=== PATIENT | female | born 1950 | race Caucasian/White ===

== ENCOUNTER 2018-08-16 13:15 | Emergency (ER) | payer MEDICARE, SELFPAY ==
[2018-08-16 13:17] VITALS: BP 169/90; PULSE 53; RESP 18; TEMP 36.7; O2SAT 98; BMI 29.9
--- NOTE | 2018-08-16 13:42 | EKG12_ITS ---
Test Reason : HYPERTENSION Blood Pressure : / mmHG Vent. Rate : 049 BPM Atrial Rate : 049 BPM P-R Int : 182 ms QRS Dur : 070 ms QT Int : 438 ms P-R-T Axes : 031 -01 020 degrees QTc Int : 395 ms Sinus bradycardia with sinus arrhythmia Low voltage QRS Septal infarct , age undetermined Abnormal ECG Confirmed by EVERETT THOMPSON, SAEID ([id number]), market editor OSCAR KAUR ([id number]) on 08/20/2018 3:21:27 PM Referred By: DC Confirmed By:SAEID FLOYD MD
--- NOTE | 2018-08-16 13:42 | RAD_ITS ---
STUDY: X-RAY CHEST REASON FOR EXAM: Female, 68 years old. Pain TECHNIQUE: Single AP portable view of the chest. COMPARISON: November 15, 2012 chest x-ray FINDINGS: The lungs are clear and expanded. There is no demonstrated pleural abnormality. Normal size heart. Normal mediastinum and jean marie. Normal visualized pulmonary arteries. Normal visualized aortic arch and descending thoracic aorta. Normal visualized thoracic spine. Normal visualized ribs, clavicles, and shoulders. There is no demonstrated abnormality of the visualized soft tissue structures of the upper abdomen. RAD/Chest 1 View (Portable) IMPRESSION: Normal x-ray examination of the chest. Electronically Signed: Madison Huitron MD at 14:41 EST Tel , Service support ,
--- NOTE | 2018-08-16 13:47 | ED.DCSUM_ITS ---
- ER Visit Summary Date of Service: 08/16/18 Chief Complaint: High blood pressure History of Present Illness: The patient is a 68 F here for high blood pressure. She has been having high blood pressure is 4 months. She increased her atenolol from 5200 yesterday under her doctor's orders. Her blood pressure today was 185/50. She feels tired and short of breath. She is having mid scapular pain and headaches. Physical Examination: Afebrile and vital signs unremarkable except for a blood pressure of 169/90. She appears alert and oriented. No acute distress. Heart regular. Lungs clear. Abdomen soft. Moves all extremities. No focal or lateralizing neurologic abnormalities. Test Results: EKG, chest x-ray, and labs pending Emergency Department Course and Treatment: Patient's blood pressure when I went to the room had increased to 197 systolic. I treated her with hydralazine. We will also check EKG, labs, chest x-ray. Patient declined a CT of her brain. Labs unremarkable. EKG showed sinus rhythm at a rate of 49. Chest x-ray was normal. Patient's blood pressure dropped into the 140s and then increased again to the 180s. She continues to have a heart rate in the 50s. No change in her symptoms . She would like to go home. I spoke with Dr. Reynoso who was on-call for her physician assistant professor of anthropology. He advised decreasing the atenolol to 50 and following up in the office on Saturday. Treatment Plan: As above Disposition: Discharge Impression: Hypertension This note was generated with GreenNote dictation software. It may contain incorrect words, spelling, and punctuation that were not noted in review of the chart prior to signing ED Disposition - Plan for ED Patient: Chief Complaint: Hypertension Referrals: [facility] Doctor,Out of [Primary Care Provider] -
[2018-08-16 14:15] LABS: Absolute Lymphocyte Count 1.78 X10^3/ul (0.83-4.51); Absolute Neutrophil Count 6.1 X10^3/uL (2.0-7.7); Basophil# 0.04 X10^3/uL; Basophil% 0.5 % (0-1); Eosinophil# 0.27 X10^3/uL; Eosinophils% 3.1 % (0-5); Hemoglobin 14.3 g/dl (12.0-15.0); Lymphocyte # 1.78 X10^3/ul (4.0); Lymphocyte % 20.4 % (19-41); Mean Corp Hgb Conc 33.3 g/gl (32-36); Mean Corpuscular Hgb 29.4 pg (27.0-32.0); Mean Corpuscular Volume 88.5 fL (81-99); Mean Platelet Vol. 9.3 fl (6.2-12.0); Monocyte# 0.58 X10^3/uL; Monocyte% 6.6 % (0-10); Neutrophil # 6.06 X10^3/uL (2.7-7.7); Neutrophil % 69.3 % (47-70); POSITIVE COUNT NO; POSITIVE DIFFERENTIAL NO; POSITIVE MORPHOLOGY NO; Platelet Count 285 K/mm3 (150-450); RBC Distribution Width CV 12.9 % (11.6-14.6); RBC Distribution Width SD 41.7 fl (35.1-43.9); Red Blood Count 4.86 M/mm3 (4.2-5.4); White Blood Count 8.7 K/mm3 (4.4-11.0)
[2018-08-16 14:31] LABS: Anion Gap 9 (5-15); BUN 14 mg/dL (7-18); BUN/Creat Ratio 17.3 RATIO (10-20); Calcium,Total 8.9 mg/dL (8.5-10.1); Chloride 108 mmol/L (98-107); Creatinine, Serum 0.81 mg/dL (0.55-1.02); EST Glomerular Filtration Rate 75 mL/min (>60); Est Glom Filt Rate - Afr Amer 91 mL/min (>60); Estimated Creatinine Clearance 63.96 ml/min; Glucose 92 mg/dL (74-106); Potassium 3.7 mmol/L (3.5-5.1); Sodium Level 140 mmol/L (136-145)
--- NOTE | 2018-08-16 15:27 | ED.DEP ---
ED Disposition - Plan for ED Patient: Chief Complaint: Hypertension Instructions: ED HTN Established Additional Instructions: follow up with Leigthon Abraham on Saturday. decrease your atenolol to 50mg
[2018-08-16 15:50] VITALS: BP 156/60; PULSE 49; RESP 15; O2SAT 96
--- NOTE | 2018-08-16 15:51 | ED.RN ---
pt bp cuff transferred to right arm. bp was closer to normal range. medication was held per dr order. pt encouraged to use right arm for future bp evals. pt was instructed to drop her medication back to normal dose and to follow-up with pcp. Aisha Negron RN [id number]
--- OUTSIDE RECORDS SUMMARY | 2018-11-19 11:45 | XMS RPT_ITS ---
:1950 Author Organization [facility] Care Team Providers Name Role Phone Bharat Aguilera Attending Unavailable Leighton Abraham Primary Care Unavailable PROBLEMS PROBLEMS No Problem Records FoundPROCEDURES PROCEDURES No Procedure Records FoundRESULTS RESULTS 12 LEAD ELECTROCARDIOGRAM Observed: 08/20/2018 Status: F Source: [place] 3:21 PM [facility] [place] [facility] Cardiovascular Services [address] [place] [address] 12 Lead EKG 08/16/18 1415 MR#: [id number] Acct: [id number] Name: HAL REYES Rep #: [id number] : 1950 68 From: Kyle Floyd MD Attending Dr: Status: DEP ER Ordering Dr: Bharat Aguilera MD Date: 08/16/18 Location: ED Sex: F C Admitted: Test Reason : HYPERTENSION Blood Pressure : / mmHG Vent. Rate : 049 BPM Atrial Rate : 049 BPM P-R Int : 182 ms QRS Dur : 070 ms QT Int : 438 ms P-R-T Axes : 031 -01 020 degrees QTc Int : 395 ms Sinus bradycardia with sinus arrhythmia Low voltage QRS Septal infarct , age undetermined Abnormal ECG Confirmed by KYLE FLOYD MD ([id number]), editor publications OSCAR KAUR ([id number]) on 08/20/2018 3:21:27 PM Referred By: DC Confirmed By:KYLE FLOYD MD 08/20/18 1521 Date Kyle Floyd MD CC: Leighton Abraham; Bharat Aguilera MD; OUT OF TOWN DOCTOR Signed DISCHARGE INSTRUCTION Observed: 08/16/2018 Status: F Source: [place] 4:56 PM [facility] RE[facility]IT[facility] Medical Records Department [address] [place] [address] Discharge Instruction 08/16/18 1527 MR#: [id number] Acct: [id number] Name: HAL REYES Rep #: [id number] : 1950 68 From: Bharat Aguilera MD PCP: OUT OF TOWN DOCTOR Status: DEP ER ED Disposition - Plan for ED Patient: Chief Complaint: Hypertension Instructions: ED HTN Established Additional Instructions: follow up with Leighton Abraham on Saturday. decrease your atenolol to 50mg What to do if you have Problems For any increased pain, shortness of breath, bleeding, nausea or vomiting, chest pain, or any unexpected problems, contact your Primary Care Provider. Call [facility] ([phone]) or report to the closest Emergency Room. Call 911 if necessary. 08/16/18 165 <Electronically signed by Bharat Aguilera MD> Date Bharat Aguilera MD Cosigner Signature (If Indicated): Date CC: Leighton Abraham; OUT OF TOWN DOCTOR EMERGENCY DEPARTMENT Observed: 08/16/2018 Status: F Source: [place] SUMMARY 4:56 PM [facility] REPOSIT[facility] Medical Records Department [address] [place] [address] Emergency Department Summary 08/16/18 1346 MR#: [id number] Acct: [id number] Name: HAL REYES Rep #: [id number] : 1950 68 From: Bharat Aguilera MD PCP: OUT OF TOWN DOCTOR Status: DEP ER - ER Visit Summary Date of Service: 08/16/18 Chief Complaint: High blood pressure History of Present Illness: The patient is a 68 F here for high blood pressure. She has been having high blood pressure is 4 months. She increased her atenolol from 5200 yesterday under her doctor's orders. Her blood pressure today was 185/50. She feels tired and short of breath. She is having mid scapular pain and headaches. Physical Examination: Afebrile and vital signs unremarkable except for a blood pressure of 169/90. She appears alert and oriented. No acute distress. Heart regular. Lungs clear. Abdomen soft. Moves all extremities. No focal or lateralizing neurologic abnormalities. Test Results: EKG, chest x-ray, and labs pending Emergency Department Course and Treatment: Patient's blood pressure when I went to the room had increased to 197 systolic. I treated her with hydralazine. We will also check EKG, labs, chest x-ray. Patient declined a CT of her brain. Labs unremarkable. EKG showed sinus rhythm at a rate of 49. Chest x-ray was normal. Patient's blood pressure dropped into the 140s and then increased again to the 180s. She continues to have a heart rate in the 50s. No change in her symptoms. She would like to go home. I spoke with Dr. Reynoso who was on-call for her physician equal opportunity assistant. He advised decreasing the atenolol to 50 and following up in the office on Saturday. Treatment Plan: As above Disposition: Discharge Impression: Hypertension This note was generated with Sittercity dictation software. It may contain incorrect words, spelling, and punctuation that were not noted in review of the chart prior to signing ED Disposition - Plan for ED Patient: Chief Complaint: Hypertension Referrals: [facility] Doctor,Out of [Primary Care Provider] - What to do if you have Problems For any increased pain, shortness of breath, bleeding, nausea or vomiting, chest pain, or any unexpected problems, contact your Primary Care Provider. Call [facility] ([phone]) or report to the closest Emergency Room. Call 911 if necessary. 08/16/18 7135 <Electronically signed by Bharat Aguilera MD> Date Bharat Aguilera MD Cosigner Signature (If Indicated): Date CC: Leighton Abraham; OUT OF TOWN DOCTOR CBC W/DIFF, AUTOMATED Collected: 08/16/2018 Status: F Source: [place] 2:08 PM [facility] [place] TYPE CODE TESTS RESULT OUT OF RANGE REFERENCE UNITS LAB L100.1000 4.4-11.0 K/mm3 Normal WBC 8.7 LAB L100.1200 4.2-5.4 M/mm3 Normal RBC 4.86 LAB L100.1300 12.0-15.0 g/dl Normal HGB 14.3 LAB L100.1400 37-47 % Normal HCT 43.0 LAB L100.1500 81-99 fL Normal MCV 88.5 LAB L100.1600 27.0-32.0 pg Normal MCH 29.4 LAB L100.1700 32-36 g/gl Normal MCHC 33.3 LAB L100.1810 11.6-14.6 % Normal RDW CV 12.9 LAB L100.1820 35.1-43.9 fl Normal RDW SD 41.7 LAB L100.1900 150-450 K/mm3 Normal PLT 285 LAB L100.2000 6.2-12.0 fl Normal MPV 9.3 LAB L100.2100 47-70 % Normal NEUT% 69.3 LAB L100.2200 19-41 % Normal LY% 20.4 LAB L100.2300 0-10 % Normal MONO% 6.6 LAB L100.2400 0-5 % Normal EO% 3.1 LAB L100.2500 0-1 % Normal BASO% 0.5 LAB L100.2550 0.0-0.9 % Normal IM GRAN % 0.100 Result Comment: IG% - Immature Granulocytes (promyelocytes, myelocytes and metamyelocytes) > 1% indicates that a LEFT SHIFT is Present. LAB L100.2620 2.0-7.7 X10 3/uL Normal Absolute Neut 6.1 LAB L100.2720 0.83-4.51 X10 3/ul Normal Absolute Lymph 1.78 Performed By: #### L100.0100 #### [facility] [address] [place], [place], [address] BASIC METABOLIC Collected: 08/16/2018 Status: F Source: [place] PROFILE (BMP) 2:08 PM [facility] [place] TYPE CODE TESTS RESULT OUT OF RANGE REFERENCE UNITS LAB L501.0100 74-106 mg/dL Normal GLU 92 Result Comment: Please note revised GLUCOSE reference range effective 2017. LAB L501.1000 7-18 mg/dL Normal BUN 14 LAB L501.1100 0.55-1.02 mg/dL Normal CREAT,SERUM 0.81 Result Comment: The validity of the calculated GFR AND GFRAA in patients over 70 years has not been determined. Clinical correlation is essential. LAB L501.1110 >60 mL/min Normal EST GFR 75 Result Comment: Non- GFR Calc LAB L501.1115 >60 mL/min Normal EST GFR - AA 91 Result Comment: GFR Calc LAB L501.1255 ml/min Normal Estimated CRCL 63.96 LAB L501.1300 10-20 RATIO Normal BUN/CRE 17.3 LAB L501.2200 8.5-10 mg/dL Normal .1 CA 8.9 LAB L501.5300 136-14 mmol/L Normal 5 NA 140 LAB L501.5600 3.5-5. mmol/L Normal 1 K 3.7 LAB L501.5900 98-107 mmol/L High CL 108 LAB L501.6100 21.0-3 mmol/L Normal 2.0 CO2 23.0 LAB L501.6200 5-15 Normal GAP 9 Performed By: #### L500.2500, L501.4010 #### [facility] [address] [place], [address] TROPONIN-I Collected: 08/16/2018 Status: F Source: [place] 2:08 PM [facility] [place] TYPE CODE TESTS RESULT OUT OF RANGE REFERENCE UNITS LAB L501.4010 <0.045 ng/mL Normal < 0.015 TROPONIN-I Result Comment: TROPONIN-I EXPECTED VALUES <0.045 Negative 0.045 - 0.590 Consistent with Cardiac Damage > OR = 0.600 Critical Value Not every elevated troponin is indicative of [place]. These values should be used with clinical judgement in examining the patient's clinical picture for diagnosis. To establish a diagnosis of OH versus myocardial injury, there must be a demonstrated rise and/or fall in the troponin values, in addition to ischemic symptoms, EKG changes, new regional wall motion abnormality, and/or angiographical evidence. PLEASE NOTE: REFERENCE RANGES EDITED 18 Performed By: #### L500.2500, L501.4010 #### [facility] [address] [facility] [place], [address] CHEST 1 VIEW Observed: 08/16/2018 Status: F Source: [place] (PORTABLE) 1:44 PM [facility] [place] [facility] Imaging Services [address] [place] [address] Chest 1 View (Portable) MR#: [id number] Acct: [id number] Name: ROSALINDA REYESROMAINE Zelaya Rep #: [id number] : 1950 F 68 From: Madison Huitron MD PCP: OUT OF TOWN DOCTOR Status: PRE ER Study: Chest 1 View (Portable) Date of Exam: 08/16/18 Exam# [id number] Ordering Dr: Bharat Aguilera MD STUDY: X-RAY CHEST REASON FOR EXAM: Female, 68 years old. Pain TECHNIQUE: Single AP portable view of the chest. COMPARISON: November 15, 2012 chest x-ray FINDINGS: The lungs are clear and expanded. There is no demonstrated pleural abnormality. Normal size heart. Normal mediastinum and jean marie. Normal visualized pulmonary arteries. Normal visualized aortic arch and descending thoracic aorta. Normal visualized thoracic spine. Normal visualized ribs, clavicles, and shoulders. There is no demonstrated abnormality of the visualized soft tissue structures of the upper abdomen. RAD/Chest 1 View (Portable) IMPRESSION: Normal x-ray examination of the chest. Electronically Signed: Madison Huitron MD at 14:41 EST Tel , Service support , CC: Bharat Aguilera MD; OUT OF TOWN DOCTOR Consumer Education Specialist: Signed ALLERGIES ALLERGIES DATE TYPE / CODE NAME / CODE REACTION SEVERITY SOURCE 08/16/2018 Drug Sulfa Angioedema Unknown [facility]/4160 (Sulfonamide [facility] 25592(SNOMED Antibiotics) Repository CT) /[id number]( RXNORM) 08/16/2018 Drug ibuprofen/F0 Rash Unknown [facility]/4160 [id number](RXN [facility] 62197(SNOMED ORM) Repository CT) ENCOUNTERS ENCOUNTERS ADMIT/DISCHARGE ACCOUNT ADMITTING ENCOUNTER LOCATION SOURCE NUMBER CLASS 08/16/2018/ [id number] Emergency Janeen Janeen 8 [facility] ing:ED Repository PAYERS PAYERS ENCOUNTER GUARANTOR PAYER SUBSCRIBER SOURCE 08/16/2018 HAL S Primary HAL S Janeen [id number] Insurance:MEDICARE GARNDOB: [facility] PART A [facility] [id number] Number: Repository [id number]: [phone] [id number] [phone] () Date:2018-08-16 08/16/2018 Secondary NOT GIVENUNK [facility] Insurance:SELF PAY [facility] Number: Effective Repository Date:2018-08-16
== END 2018-08-16 16:16 | disposition home or self-care (01) ==
LOC: ED 16:01
PROVIDERS: Emergency Provider Emergency Medicine; Family Provider Physician Assistant
DX: I10 Essential (primary) hypertension (principal); Z79.899 Other long term (current) drug therapy
CPT/HCPCS: 71045; 80048; 84484; 85025; 93005; 99285; A4216